=== PATIENT | female | born 1965 | race Caucasian/White ===

== ENCOUNTER 2019-10-07 07:30 | Inpatient (IN) ==
[2019-10-29 16:08] LABS: Basophils # (Auto) 0.07 K/mcL (0.00-0.30); Basophils % (Auto) 0.5 % (0.0-2.0); Eosinophils % (Auto) 0.7 % (0.0-7.0); Granulocytes % (Auto) 71.8 % (38.0-78.0); Hematocrit 46.9 % (34.1-44.9); Hemoglobin 14.2 g/dL (11.2-15.7); Lymphocytes # (Auto) 3.28 K/mcL (1.50-4.80); Lymphocytes % (Auto) 21.9 % (15.5-49.0); Mean Cell Volume 84.1 fL (80.0-100.0); Mean Corpuscular HGB Conc 30.3 g/dL (31.0-36.0); Mean Platelet Volume 10.7 fL (7.4-10.4); Monocytes # (Auto) 0.76 K/mcL (0.10-0.90); Monocytes % (Auto) 5.1 % (1.0-12.0); Platelet Count 322 K/mcL (140-440); RBC 5.58 M/mcL (3.59-5.38); Red Cell Distribution Width 16.1 % (11.5-14.5)
[2019-10-29 16:11] LABS: Blood Urea Nitrogen 17 mg/dl (6-20); Calcium 9.4 mg/dl (8.6-10.4); Carbon Dioxide 25 mmol/L (22-30); Chloride 98 mmol/L (96-108); Glomerular Filtration Rate 72; Glucose 100 mg/dL (70-105)
[2019-10-29 16:23] LABS: Appearance,Urine CLEAR; Bacteria,Urine 0 /hpf (0); Bilirubin,Urine NEG (NEG); Color,Urine STRAW; Culture Indicated,Urine NO; Glucose,Urine (UA) >=500 mg/dL (NEG); Ketones,Urine NEG (NEG); Leukocyte Esterase,Urine NEG /uL (NEG); Nitrate,Urine NEG (NEG); Protein,Urine NEG (NEG); Specific Gravity,Urine 1.017 (1.000-1.035); Urine Blood NEG mg/dL (<0.03); Urine RBC 0 /hpf (0-1); Urine Squamous Epithelial Cell < 1 /hpf (0-4); Urine WBC < 1 /hpf (0-4); Urobilinogen,Urine NEG (NEG)
[2019-10-29 18:21] LABS: Estimated Average Glucose(eAG) 160 mg/dL; Hemoglobin A1C 7.2 % HGB (4.0-6.0)
[2019-11-04] MEDS ORDERED: SCOPOLAMINE 1 PATCH PATCH TOPICAL PRN ×2 (01:49→06:00)
[2019-11-04] MEDS ORDERED: 0.9 % SODIUM CHLORIDE 9 ML, KETOROLAC 30 MG, ROPIVACAINE HCL/PF 49.5 ML, EPINEPHrine 0.... IJ SCH (06:00)
[2019-11-04] MEDS ORDERED: ACETAMINOPHEN 500 MG TABLET PO SCH (06:00)
[2019-11-04] MEDS ORDERED: CELECOXIB 200 MG CAPSULE PO SCH (06:00)
[2019-11-04] MEDS ORDERED: IPRATROPIUM/ALBUTEROL 3 ML AMPUL.NEB NEB PRN ×2 (06:00→10:40)
[2019-11-04] MEDS ORDERED: PREGABALIN 75 MG CAPSULE PO SCH (06:00)
[2019-11-04] MEDS ORDERED: ceFAZolin 2 GM in DEXTROSE 5% IN WATER 50 ML IV SCH (06:00)
[2019-11-04 07:23] LABS: Basophils # (Auto) 0.07 K/mcL (0.00-0.30); Basophils % (Auto) 0.4 % (0.0-2.0); Eosinophils # (Auto) 0.24 K/mcL (0.00-0.70); Eosinophils % (Auto) 1.5 % (0.0-7.0); Granulocytes % (Auto) 64.3 % (38.0-78.0); Hematocrit 41.2 % (34.1-44.9); Hemoglobin 13.1 g/dL (11.2-15.7); Lymphocytes # (Auto) 4.41 K/mcL (1.50-4.80); Lymphocytes % (Auto) 27.6 % (15.5-49.0); Mean Cell Volume 81.1 fL (80.0-100.0); Mean Corpuscular HGB Conc 31.8 g/dL (31.0-36.0); Mean Platelet Volume 10.5 fL (7.4-10.4); Monocytes # (Auto) 0.99 K/mcL (0.10-0.90); Monocytes % (Auto) 6.2 % (1.0-12.0); Platelet Count 278 K/mcL (140-440); RBC 5.08 M/mcL (3.59-5.38); Red Cell Distribution Width 15.6 % (11.5-14.5)
[2019-11-04] MEDS ORDERED: GENTAMICIN SULFATE 800 MG/20 ML VIAL IR ONE (08:12)
[2019-11-04] MEDS ORDERED: PHENYLEPHRINE 10 MG/ML VIAL IV ONE (09:11)
[2019-11-04] MEDS ORDERED: ROPIVACAINE HCL/PF 30 ML VIAL IJ ONE (09:11)
[2019-11-04] MEDS ORDERED: GLYCOPYRROLATE 0.2 MG/ML VIAL IV ONE (09:11)
[2019-11-04] MEDS ORDERED: KETAMINE 100 MG/ML ML IV ONE (09:11)
[2019-11-04] MEDS ORDERED: ONDANSETRON 4 MG/2 ML VIAL IV ONE (09:11)
[2019-11-04] MEDS ORDERED: PROPOFOL 200 MG/20 ML VIAL IV ONE (09:11)
[2019-11-04] MEDS ORDERED: DEXAMETHASONE 10 MG/ML VIAL IV ONE (09:11)
[2019-11-04] MEDS ORDERED: TRANEXAMIC ACID 1,000 MG/10 ML VIAL IV ONE (09:11)
[2019-11-04] MEDS ORDERED: LIDOCAINE HCL/PF 100 MG/5 ML SYRINGE IV ONE (09:11)
[2019-11-04] MEDS ORDERED: MIDAZOLAM 2 MG/2 ML VIAL IV ONE (09:11)
[2019-11-04] MEDS ORDERED: fentaNYL 100 MCG/2 ML VIAL IV PRN (10:40)
[2019-11-04] MEDS ORDERED: MEPERIDINE 25 MG/ML SYRINGE IV PRN (10:40)
[2019-11-04] MEDS ORDERED: METHOCARBAMOL 1,000 MG/10 ML VIAL IV PRN (10:40)
[2019-11-04] MEDS ORDERED: ONDANSETRON 4 MG/2 ML VIAL IV PRN ×2 (10:40→10:52)
[2019-11-04] MEDS ORDERED: LACTATED RINGERS 1,000 ML IV SCH (10:45)
[2019-11-04] MEDS ORDERED: FLEETS ADULT ENEMA PR PRN (10:52)
[2019-11-04] MEDS ORDERED: POLYETHYLENE GLYCOL 3350 17 GM PACKET PO PRN (10:52)
[2019-11-04] MEDS ORDERED: HYDROmorphone 2 MG/ML VIAL IV PRN (10:52)
[2019-11-04] MEDS ORDERED: TRANEXAMIC ACID 1,000 MG/10 ML VIAL IV SCH (10:52)
[2019-11-04] MEDS ORDERED: ACETAMINOPHEN 325 MG TABLET PO PRN (10:52)
[2019-11-04] MEDS ORDERED: MAGNESIUM HYDROXIDE 30 ML ORAL.SUSP PO PRN (10:52)
[2019-11-04] MEDS ORDERED: BISACODYL 10 MG SUPP.RECT PR PRN (10:52)
[2019-11-04] MEDS ORDERED: BENZOCAINE/MENTHOL 1 LOZENGE PO PRN (10:52)
--- NOTE | 2019-11-04 10:57 | Brief Operative Note ---
Date of procedure: 11/04/19 Pre-op diagnosis: Right knee severe djd Post-op diagnosis: same Procedure: Right tka with lucina robot Grafts/Implants: Yes Anesthesia: VALA Surgeon: Milad Rush Gage Designer: Spencer Ervin Estimated blood loss (cc): 20 Tourniquet Time (Minutes): 63 Specimens Removed/Pathology: none sent Condition: stable Disposition: PACU
--- NOTE | 2019-11-04 11:06 | Discharge Summary ---
Ortho Discharge - TKA - Patient Instructions Diet: Regular Diet Activity: activity as tolerated, weight bearing as tolerated Total Knee Protocol: For Total Knee: Start ROM SKYLAR with stationary bike or rocking chair. Work on gaining full extension of knee. Posterior dislocation precautions provided. Hip abductor strengthening and gait training instructions provided. Apply Cryocuff as instructed. Dressing Care: May shower in 2 days - Follow Up Plan Follow Up Appointments: Spencer Ervin PA-C [Physician [facility]] - 11/19/19 1:00 pm Disposition: Home, Self-Care Prognosis: Good Rehab Potential: Good I certify that the patient requires SNF services: No Overall status at discharge: patient is progressing back to baseline - Orders For Discharge Prescriptions: Docusate Sodium [Colace] 100 mg PO BID #60 cap Transmission Status: Pending to [facility]. HYDROmorphone [Dilaudid] 1 - 2 tab PO Q4HP PRN #75 tab PRN Reason: Per Pain Protocol Prescription Printed Aspirin [Ecotrin] 325 mg PO BID #60 tab.ec Transmission Status: Pending to [facility]
--- NOTE | 2019-11-04 11:22 | Operative Note ---
DATE OF OPERATION: 11/04/2019 PREOPERATIVE DIAGNOSIS: Right knee degenerative arthritis, severe. POSTOPERATIVE DIAGNOSIS: Right knee degenerative arthritis, severe. PROCEDURE: Right total knee arthroplasty. SURGEON: Milad Rush MD SECURITY INTERN: Spencer Ervin PA-C. This provider's expertise and technical skill were required throughout the case. The PA assisted with preoperative coordination, intraoperative retraction, wound closure, dressing and splint application, as well as postoperative documentation and care coordination. ANESTHESIA: General LMA anesthesia. COMPLICATIONS: None. INDICATION FOR SURGERY: The patient had failed all conservative measures, which include anti-inflammatories, ibuprofen and Aleve as well as Tylenol. The patient also had failed multiple steroid injections. DESCRIPTION OF PROCEDURE: Patient was taken to the operating room and put to sleep with general LMA anesthesia. Once asleep, a timeout was performed confirming the operative site by initials, consent form and x-rays. Once done, we then confirmed the patient received antibiotics and tranexamic acid. Ioban was placed over the skin and a midline incision was made. A mid vastus approach exposing the joint showed severe arthritis of all three compartments. Two pins above and below the knee were placed and the arrays were placed, intra-articular pins, and these were registered. The hip center of hip rotation was registered; medial and lateral malleoli were registered; pins were registered and then 30 points on the femur and the tibia were registered and we balanced the knee at 90 degrees as well as 15 degrees. Once perfectly balanced, we then adjusted the robot alignment and brought the robot in. These cuts were made. This seemed to balance very nicely. It was a little tight in extension giving us negative 5 degrees. At this point, we recut the tibia, giving us much improved range of motion. We irrigated thoroughly and placed a 11 mm poly. This seemed to balance well. We resurfaced the patella with a 35 mm patellar button. We irrigated thoroughly and then cemented into place a size 4 femur, size 4 tibial baseplate, an 11 mm poly liner with a deep dish with a cruciate retained design. We irrigated thoroughly. The tourniquet was deflated at 63 minutes. We closed the midvastus approach with #1 Stratafix x2, closed the skin with Stratafix and an adhesive closure. The patient tolerated this well. Sterile bandage was applied. ALIZE:niurka Job ID: [id number] Doc ID: [id number] Milad Rush MD
--- NOTE | 2019-11-04 11:49 | XRay Report ---
CLINICAL INFORMATION: Postsurgical follow-up TECHNIQUE: Portable AP and crosstable lateral right knee COMPARISON: None. FINDINGS: Status post right total knee arthroplasty. Alignment is anatomic. There is postsurgical soft tissue and intra-articular gas. IMPRESSION: Right total knee arthroplasty Interpreted and Authenticated by: Jacob Villanueva 11/04/19
[2019-11-04] MEDS: KETOROLAC 15 MG/ML VIAL IV SCH ×3 (13:08→23:48)
[2019-11-04] MEDS: LACTATED RINGERS 1,000 ML IV SCH ×2 (13:09→19:24)
[2019-11-04] MEDS: 0.9 % SODIUM CHLORIDE 10 ML SYRINGE IV SCH ×2 (13:12→20:58)
[2019-11-04] MEDS: CYCLOBENZAPRINE 10 MG TABLET PO SCH ×2 (15:43→20:56)
[2019-11-04] MEDS: HYDROmorphone 2 MG TABLET PO PRN ×3 (15:43→23:48)
[2019-11-04] MEDS: ceFAZolin 1 GM VIAL IV SCH ×2 (17:06→23:49)
[2019-11-04] MEDS: ASPIRIN 325 MG ENTERIC COATED TABLET PO SCH (20:56)
[2019-11-04] MEDS: DOCUSATE SODIUM 100 MG CAPSULE PO SCH (20:57)
[2019-11-04] MEDS ORDERED: LISINOPRIL 5 MG TABLET PO SCH (21:00)
[2019-11-04] MEDS ORDERED: traZODone HCL 50 MG TABLET PO SCH (21:00)
[2019-11-04] MEDS ORDERED: TEMAZEPAM 15 MG CAPSULE PO PRN (21:00)
[2019-11-04] MEDS ORDERED: SENNOSIDES 1 TABLET PO SCH (21:00)
[2019-11-04] MEDS ORDERED: VENLAFAXINE 75 MG CAP.XL.24H PO SCH (21:00)
[2019-11-04] MEDS ORDERED: METOPROLOL SUCCINATE 25 MG TAB.XL.24H PO SCH (21:00)
[2019-11-05] MEDS: 0.9 % SODIUM CHLORIDE 10 ML SYRINGE IV SCH (05:37)
[2019-11-05] MEDS: KETOROLAC 15 MG/ML VIAL IV SCH ×2 (05:37→11:02)
[2019-11-05] MEDS: diphenhydrAMINE 25 MG CAPSULE PO PRN ×2 (08:19→12:19)
[2019-11-05] MEDS ORDERED: FAMOTIDINE 20 MG TABLET PO SCH (09:00)
[2019-11-05] MEDS ORDERED: glipiZIDE 5 MG TAB.XL.24H PO SCH (09:00)
[2019-11-05] MEDS: HYDROmorphone 2 MG TABLET PO PRN ×2 (09:07→12:58)
[2019-11-05] MEDS: CYCLOBENZAPRINE 10 MG TABLET PO SCH (09:07)
[2019-11-05] MEDS: DOCUSATE SODIUM 100 MG CAPSULE PO SCH (09:07)
[2019-11-05] MEDS: ASPIRIN 325 MG ENTERIC COATED TABLET PO SCH (09:07)
[2019-11-05] MEDS: LACTATED RINGERS 1,000 ML IV SCH (10:56)
== END 2019-11-05 13:45 | disposition home or self-care (01) | DRG 470 ==
LOC: MEDSUR 11-04 06:19
PROVIDERS: ADMIT Orthopaedic Surgery; ATTEND Orthopaedic Surgery